=== PATIENT | female | born 1935 | race Two or more races ===

== ENCOUNTER 2017-07-12 15:58 | Emergency (ER) | payer MEDICARE, MEDICAID ==
[~2017-07-12] VITALS: Ht 152.4 cm; Wt 56.7 kg
[2017-07-12] MEDS ORDERED: LOTREL5 CAP/10 C ORAL (16:03)
[2017-07-12] MEDS ORDERED: ADVAIR 100-501 EACH INH (16:03)
[2017-07-12] MEDS ORDERED: NEXIUM10 MG ORAL (16:03)
[2017-07-12] MEDS ORDERED: ALBUTEROL2.5 MG/3 M INH (16:03)
[2017-07-12 16:07] VITALS: BP 125/65
--- NOTE | 2017-07-12 16:26 | Emergency Room Report ---
History of Present Illness General Chief Complaint: General Complaint Source: Patient (Brenden Jiang) Present Illness HPI 82 yo female patient presents to ER BIB [facility] for cough x2 days. Patient reports dry cough. Denies chest pain, SOB. Reports low back pain, sore throat, and [place] following coughing fits. Patient reports hx of asthma; reports use of inhaler; used last night. Denies use of medication today for symptoms. Patient denies hx of sick contacts. Denies recent surgery. Denies fever, abdominal pain, diarrhea, vomiting, vision changes, neck pain, calf pain. (Brenden Jiang) Allergies: Coded Allergies: No Known Allergies (Unverified , 07/12/17) Patient History Past Medical History: see triage record, asthma Last Menstrual Period: Post Reviewed Nursing Documentation: PMH: Agreed, PSxH: Agreed (Brenden Jiang) Nursing Documentation-PMH Hx Hypertension: Yes Hx Asthma: Yes (Brenden Jiang) Review of Systems All Other Systems: negative except mentioned in HPI (Brenden Jiang) Physical Exam Vital Signs Date Time Temp Pulse Resp B/P (MAP) Pulse Ox O2 Delivery O2 Flow Rate FiO2 07/12/17 15:53 98.6 100 20 125/65 98 Room Air 98.6 Sp02 EP Interpretation: reviewed, normal General Appearance: well appearing, alert, GCS 15, non-toxic, mild distress Head: normocephalic, atraumatic Eyes: bilateral eye normal inspection, bilateral eye PERRL ENT: hearing grossly normal, normal pharynx, normal voice, TMs + canals normal , uvula midline, moist mucus membranes, pharyngeal erythema Neck: full range of motion Respiratory: normal inspection, lungs clear, no respiratory distress, no accessory muscle use, speaking full sentences, wheezing Cardiovascular #1: regular rate, rhythm, no edema Gastrointestinal: normal bowel sounds, non tender, soft, no mass, non-distended , no guarding, no rebound Genitourinary: no CVA tenderness Musculoskeletal: back normal, digits/nails normal, gait/station normal, normal range of motion, no calf tenderness, Niharika's Sign negative Neurologic: alert, oriented x3, responsive, motor strength/tone normal, normal gait Psychiatric: mood/affect normal Skin: no rash Lymphatic: no adenopathy (Brenden Jiang) Medical Decision Making PA Attestation Dr. Segura is my supervising Physician whom patient management has been discussed with. (Brenden Jiang) Medicare Attestation The history of Jessica Cesar has been reviewed and management options for her have been examined and discussed by Basilio Segura. I have personally examined and interviewed the patient. (BASILIO SEGURA M.D.) Diagnostic Impression: Primary Impression: Atypical pneumonia Additional Impression: Asthma attack ER Course Pt presents to ED c/o cough. DDX considered but are not limited to asthma, viral URI, influenza, bronchitis, pneumonia, UTI. Per Well's criteria for PE, PE unlikely. PE wheezing, likely acute exacerbation of asthma. Ordered breathing treatment, Decadron, CXR, EKG, UA. Back pain likely related to cough, reproducible symptoms when coughing. Ordered UA for possible UTI. Patient denies urinary symptoms. VITAL SIGNS are WNL, patient is afebrile. Patient pulse slightly elevated. Likely related to breathing symptoms. ER COURSE: Patient provided with dexamethasone. Albuterol/Atrovent breathing treatment provided. CXR negative for acute disease EKG no ST elevations UA negative Following first breathing treatment patient improvement in symptoms. Patient still coughing with deep inspirations. Will repeat breathing treatment. Ordered second breathing treatment and promethazine cough syrup. Patient reports feeling much better following second treatment and administration of medication. No wheezing, rhonchi, or rales on repeat physical exam. Patient is resting comfortably in no acute distress, nontoxic appearing. Patient reports no difficulty breathing. Patient smiling, speaking full sentences. Although no infiltrate noted on CXR, due to clinical presentation and age, believe patient will benefit from treatment with antibiotics as outpatient. Discussed care with Dr. Segura, agrees with treatment plan. DISCHARGE: -Rx given for Prednisone. -Rx provided for Albuterol MDI. -Rx provided for Levofloxacin. -Rx provided for Promethazine cough syrup. At this time pt is stable for d/c to home. Patient is resting comfortably in no acute distress, nontoxic appearing, able to answer questions without difficulty. Patient able to ambulate with use of her walker without assistance. Patient called family member to come and order picker/assembler from ER. Patient vitals WNL prior to discharge. Patient to take medications as instructed Will provide with patient care instructions and any necessary prescriptions. Care plan and follow-up instructions provided. Patient instructed to follow-up with primary care provider in 3 - 5 days. Patient questions asked and answered. Patient reports understanding and agreement to treatment plan. ER precautions given. Patient instructed to return to ER immediately for any new or worsening of symptoms including but not limited to increasing SOB, persistent fever. Labs Test 07/12/17 16:35 Urine Color Pale yellow Urine Appearance Clear Urine pH 6 (4.5-8.0) Urine Specific [place] 1.015 (1.005-1.035) Urine Protein Negative (NEGATIVE) Urine Glucose (UA) Negative (NEGATIVE) Urine Ketones Negative (NEGATIVE) Urine Occult Blood Negative (NEGATIVE) Urine Nitrite Negative (NEGATIVE) Urine Bilirubin Negative (NEGATIVE) Urine Urobilinogen Normal MG/DL (0.0-1.0) Urine Leukocyte Esterase Negative (NEGATIVE) (Brenden Jiang P.A.) EKG Diagnostic Results Rate: normal Rhythm: NSR ST Segments: no acute changes Other Impression right bundle branch block PA Scribe Text Charli Jiang PA-C (Brenden Jiang P.A.) Rhythm Strip Diag. Results EP Interpretation: yes Rate: 98 Rhythm: NSR, no PVC's, no ectopy PA Scribe Text Charli Jiang PA-C (Brenden Jiang P.A.) Chest X-Ray Diagnostic Results Chest X-Ray Diagnostic Results : Chest X-Ray Ordered: Yes # of Views/Limited/Complete: 1 View Indication: Chest Pain EP Interpretation: Yes PA Xray: Interpretation reviewed, by supervising MD, and agrees with findings. Interpretation: no consolidation, no effusion, no pneumothorax Impression: No acute disease PA Scribe Text Charli Jiang PA-C (Brenden Jiang P.A.) Last Vital Signs Date Time Temp Pulse Resp B/P (MAP) Pulse Ox O2 Delivery O2 Flow Rate FiO2 07/12/17 16:07 98.6 20 125/65 98 Room Air 98.6 07/12/17 15:53 100 Status: improved (Brenden Jaing P.A.) Disposition: HOME, SELF-CARE Condition: Stable Scripts Promethazine Hcl (PROMETHAZINE HCL*) 6.25 Mg/5 Ml Syrup 5 ML ORAL Q8H, #120 ML 0 Refills Prov: Brenden Jiang 07/12/17 Prednisone* (PREDNISONE*) 20 Mg Tablet 40 MG ORAL DAILY for 5 Days, #10 TAB Prov: Brenden Jiang 07/12/17 Albuterol Sulfate* (ALBUTEROL SULFATE MDI*) 8.5 Gm Hfa.aer.ad 2 PUFF INH Q6H, #1 INH 0 Refills Prov: Brenden Jiang 07/12/17 Levofloxacin* (LEVAQUIN*) 750 Mg Tablet 750 MG ORAL DAILY for 7 Days, #7 TAB Prov: Brenden Jiang 07/12/17 Patient Instructions: Asthma, Adult, [id number], Community-Acquired Pneumonia , Adult, [id number] Additional Instructions: Followup with primary care provider in 3 -5 days for further treatment and referral. Take medications as directed. Patient questions asked and answered. ER precautions given, patient instructed to return to ER immediately for any new or worsening of symptoms including fever, chest pain, SOB. Brenden Jiang Jul 12, 2017 16:26 BASILIO SEGURA M.D. Jul 13, 2017 14:23
[2017-07-12] MEDS ORDERED: Dexamethasone 4mg/ml vial IM ONE (16:30)
[2017-07-12] MEDS ORDERED: Albuterol/Ipratropium 3ml neb HHN ONE ×2 (16:30→17:30)
[2017-07-12 16:56] LABS: APPEARANCE,URINE CLEAR; BILIRUBIN, URINE NEGATIVE (NEGATIVE); COLOR,URINE PALE YELLOW; GLUCOSE, URINE (UA) NEGATIVE (NEGATIVE); KETONES,URINE NEGATIVE (NEGATIVE); LEUKOCYTE ESTERASE ,URINE NEGATIVE (NEGATIVE); NITRITE,URINE NEGATIVE (NEGATIVE); PH,URINE 6 (4.5-8.0); PROTEIN,URINE NEGATIVE (NEGATIVE); UROBILINOGEN,URINE NORMAL MG/DL (0.0-1.0)
[2017-07-12] MEDS ORDERED: ALBUTEROL SULF8.5 GM INH (17:25)
[2017-07-12] MEDS ORDERED: PREDNISONE20 MG ORAL (17:25)
[2017-07-12] MEDS ORDERED: LEVAQUIN750 MG ORAL (17:25)
[2017-07-12] MEDS ORDERED: PROMETHAZI6.25 MG/1 ORAL (17:25)
[2017-07-12] MEDS ORDERED: Promethazine Plain 6.25mg/5ml ORAL ONE (17:30)
[2017-07-12 19:40] VITALS: BP 116/68
[2017-07-12 19:52] VITALS: BP 125/65
--- NOTE | 2017-07-13 08:31 | Diagnostic Imaging Report ---
Indication: Cough and chest pain Technique: One view of the chest Comparison: none Findings: The heart size is upper limits of normal. The aorta is elongated. There are left basilar atelectatic changes. Impression: Left basilar atelectasis. No acute process otherwise
--- NOTE | 2017-07-13 15:17 | Cardiology Report ---
APPROVED REPORT EKG Measurement Heart [id number] Normal sinus rhythm Left axis deviation Right bundle branch block Inferior infarct, age undetermined Abnormal ECG
== END 2017-07-12 19:40 | disposition home or self-care (01) ==
LOC: EDBD 15:58 → EMR 16:05
DX: J18.9 Pneumonia, unspecified organism (principal); J45.909 Unspecified asthma, uncomplicated; I10 Essential (primary) hypertension
CPT/HCPCS: 71045; 81003; 93005; 94640; 94664; 96372; 99284; J1100; J7620